=== PATIENT | male | born 1940 | race Caucasian/White ===

== ENCOUNTER 2019-02-08 07:53 | Inpatient (IN) ==
--- NOTE | 2019-01-16 15:36 | PAT Medication Instructions ---
Medication Instructions Date of Service January 16, 2019 Home Medications Naproxen (Aleve) 440mg PO QDL ASK your surgeon for instructions Naproxen (Aleve) 440mg PO QDL Other Notes If you have any questions please call us at [phone] or [phone] or [phone] or [phone]
--- NOTE | 2019-01-17 10:30 | Anesthesiology Consultation ---
Date of Service January 17, 2019 Assessment & Plan (1) Encounter for pre-operative examination: Chart Review Chart Review: Acceptable Risk for Surgery and Patient seen in Pre Admission Testing Consults Requested medical (Dr. Johsnon, 01/28 @ 10am) Patient was seen by PCPs office on 02/04/19 for preoperative evaluation. Per note from this visit, "Patient is medically clear for surgery with acceptable risk." Teaching & Discussion Pre-Anesthesia Teaching/Discussion Notes: Instructed NPO after midnight before surgery, except medications with 15 cc of water. Medication instructions provided according to the PAT guidelines. History Surgery Operation Date: 02/08/19 11:05 Proposed Procedures p Right Total Knee Arthroplasty - Edvin Wheat MD Height/Weight Height: 5 ft 8 in Weight: 84 kg Allergies Allergy/AdvReac Type Severity Reaction Status Date / Time No Known Allergies Allergy Verified 02/08/19 08:30 Medications Home Medications Medication Instructions Recorded Confirmed Last Taken naproxen sodium [Aleve] 440 mg PO QDL 01/15/19 02/08/19 02/07/19 08:00 omeprazole magnesium [Prilosec OTC] 20 mg PO QAM 01/17/19 02/08/19 02/08/19 06:00 Norvasc 5 mg PO DAILY 02/08/19 02/08/19 02/08/19 06:00 lisinopril 10 mg PO DAILY 02/08/19 02/08/19 02/08/19 06:00 Active Medications Generic Name Dose Route Start Last Admin Trade Name Freq PRN Reason Stop Dose Admin Acetaminophen 1,000 mg 02/08/19 06:00 02/08/19 09:08 Tylenol PO 02/08/19 18:00 1,000 mg PREOP ALICIA Administration Celecoxib 200 mg 02/08/19 06:00 02/08/19 09:08 Celebrex PO 02/08/19 18:00 200 mg PREOP ALICIA Administration Dexamethasone 8 mg 02/08/19 06:00 02/08/19 09:08 Decadron PO 02/08/19 18:00 8 mg PREOP ALICIA Administration Famotidine 20 mg 02/08/19 06:00 02/08/19 09:08 Pepcid PO 02/08/19 18:00 20 mg PREOP ALICIA Administration Gabapentin 300 mg 02/08/19 06:00 02/08/19 09:08 Neurontin PO 02/08/19 18:00 300 mg PREOP ALICIA Administration Lactated Ringer's 1,000 mls @ 15 mls/hr 02/08/19 06:00 02/08/19 09:06 Lr IV 02/08/19 18:00 15 mls/hr .Q24H ALICIA Administration Metoclopramide HCl 10 mg 02/08/19 06:00 02/08/19 09:08 Reglan PO 02/08/19 18:00 10 mg PREOP ALICIA Administration Past Medical History Medical History Hypertension (Acute) Bilateral eye ectropion Osteoarthritis Past Surgical History Surgical History History of ectropion repair x5 - right eye Past Anesthesia History No Hx of Anesthesia Complications and No Family Hx of Anesthesia Complications History of PONV No Motion Sickness Screening History of Motion Sickness: No Social History Smoking Status: Former smoker tobacco type: pipe Do You Dip or Chew Tobacco: No Smoking End Date: 35 yr ago Hx Alcohol Use: Yes Alcohol type: beer alcohol intake frequency: 0-2 drinks per day Hx Substance Use: No Exercise / Class Metabolic Activity II 4-5 Yardwork/Stairs/Walk up hill (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 Able to climb FOS. Denies CP or SOB. ) Review of Systems Patient denies chest pain, shortness of breath, dyspnea on exertion, cough, wheezing, palpitations. +Joint Pain (Knee) +Acid Reflux (controlled with medications) Physical Exam Vital Signs Last Vital Signs Temp 36.8 C 02/08/19 08:49 Pulse 77 02/08/19 08:49 Resp 18 02/08/19 08:49 BP 177/75 H 02/08/19 08:49 Pulse Ox 99 02/08/19 08:49 BP: 178/74 P: 69 R: 16 T: 98.2 SPO2: 98% on RA Eye - Bilateral Ectropian R>L ENMT Mouth: + poor dentition Thyromental Distance: < 3.5 Finger Breadths (3) Mallampati Class: II Upper partial Neck normal visual inspection and trachea midline; neck extension not limited Respiratory normal respiratory effort Auscultation: lungs clear to auscultation bilaterally Cardiovascular Rate/Rhythm: regular rate and regular rhythm Heart Sounds: no murmur Vessels: no carotid bruit Neurologic moves all extremities Psychiatric Orientation: alert and oriented x 3 Testing Electrocardiogram Date: 01/17/19 Findings: + NSR @ (69) Sinus rhythm with 1st degree AV block. Left anterior fascicular block. Chest X-Ray Date: 01/17/19 Findings: + NAD FINDINGS: Small cluster of tiny nodular densities within the right upper lobe favor calcified granulomas. The lungs are otherwise clear. No pleural effusions. No pneumothorax. The heart is normal in size. IMPRESSION: No acute process. Laboratory Results 01/17/19 11:08 01/17/19 11:08 Blood Type B Positive 01/17/19 11:08 Antibody Screen NEGATIVE 01/17/19 11:08 PT 10.7 Seconds (9.0-12.0) 01/17/19 11:08 INR 1.0 (0.9-1.1) 01/17/19 11:08 APTT 26.4 Seconds (21.0-31.0) 01/17/19 11:08 Hemoglobin A1c 5.2 % (4.5-5.6) 01/17/19 11:08 Urine Color Dark Yellow 01/17/19 11:08 Urine Appearance Clear (Clear) 01/17/19 11:08 Urine pH 8.0 (4.5-7.5) H 01/17/19 11:08 Ur Specific [place] 1.023 (1.000-1.030) 01/17/19 11:08 Urine Protein Negative (Negative) 01/17/19 11:08 Urine Glucose (UA) Negative (Negative) 01/17/19 11:08 Urine Ketones Trace (Negative) H 01/17/19 11:08 Urine Nitrite Negative (Negative) 01/17/19 11:08 Ur Leukocyte Esterase Negative (Negative) 01/17/19 11:08 01/17/19 11:08 Urine Culture - Final Urine,Clean Catch Three types of organisms present, all low counts probable skin norman. No further identifications or sensitivities to follow.
[2019-01-17 11:21] LABS: Basophils # (auto) 0.01 K/uL (0-0.2); Basophils % (auto) 0.2 %; Eosinophils # (auto) 0.06 K/uL (0-0.5); Eosinophils % (auto) 1.3 %; Hematocrit (blood only) 46.3 % (42-52); Hemoglobin 15.9 g/dL (14.0-18.0); Lymphocytes # (auto) 0.85 K/uL (1.2-3.4); Lymphocytes % (auto) 18.2 %; Mean Corpuscular Hgb Conc 34.3 g/dL (32-36); Mean Corpuscular Volume 99.8 fL (80-100); Monocytes # (auto) 0.67 K/uL (0.11-0.59); Monocytes % (auto) 14.3 %; Neutrophils # (auto) 3.08 K/uL (1.4-6.5); Platelet Count 102 K/uL (130-400); RDW Coefficient of Variation 13.1 % (11.5-14.5); RDW Standard Deviation 47.3 fL (36.4-46.3); Red Blood Count 4.64 M/uL (4.7-6.1); White Blood Count 4.67 K/uL (4.8-10.8)
[2019-01-17 11:25] LABS: Appearance Urine Clear (Clear); Bilirubin Urine Negative (Negative); Blood Urine Negative (Negative); Color Urine Dark Yellow; Glucose Urine UA Negative (Negative); Ketones Urine Trace (Negative); Leukocyte Esterase Urine Negative (Negative); Nitrite Urine Negative (Negative); Protein Urine Negative (Negative); Specific Gravity Urine 1.023 (1.000-1.030); Urobilinogen Urine Negative (Negative)
[2019-01-17 11:29] LABS: Estimated Average Glucose 103 mg/dl; Hemoglobin A1C 5.2 % (4.5-5.6)
[2019-01-17 11:36] LABS: Partial Thromboplastin Time 26.4 Seconds (21.0-31.0); Prothrombin Time 10.7 Seconds (9.0-12.0)
--- NOTE | 2019-01-17 12:03 | XRay Report ---
XR chest Pre-admission PA/Lat HISTORY: Preop. COMPARISON: None. FINDINGS: Small cluster of tiny nodular densities within the right upper lobe favor calcified granulo mas. The lungs are otherwise clear. No pleural effusions. No pneumothorax. The heart is normal in siz e. IMPRESSION: No acute process. Electronically signed by: Jevon Joseph M.D. 01/17/2019 12:02 PM
[2019-01-17 12:49] LABS: Albumin Level 3.7 gm/dl (3.4-5.0); BUN Creatinine Ratio 14.3 (10-20); Calcium 9.6 mg/dl (8.5-10.1); Creatinine Clr Calc Pharmacy 77.4 ml/min; Est GFR (African American) 97.7; Est GFR (Non-African American) 84.3
--- NOTE | 2019-01-30 14:53 | History & Physical Report ---
Date of Service January 30, 2019 Assessment & Plan (1) Primary osteoarthritis of right knee: Patient has failed conservative measures as above. Treatment options were discussed and he would like to proceed with surgical intervention. Risks, benefits and alternatives to surgery including but not limited to infection, DVT, pain, stiffness, need for revision surgery, damage to blood vessels, damage to nerves, PE, , were discussed with the patient and they wish to proceed. Plan will be for right total knee arthroplasty. We will plan on Aspirin 81mg BID x 30 days for DVT prophylaxis. Plans will be for him to go home upon discharge from the hospital with either home therapy vs outpatient PT. He will follow up in the office post operatively. History of Present Illness Chief Complaint: Right knee pain Primary Care Provider: Livia Zamora 78 year old male who presents with chronic right knee pain. He has adavanced osteoarthritis of his right knee. He has failed conservative measures including steroid injections and aspiration as well as anti-inflammatory medication. Last injection only gave him a few weeks of relief. He would like to proceed with right knee replacement. Patient denies headaches, sweats, fevers, chills, double vision, blurred vision, cough, sore throat, dysphagia, chest pain, sob, wheezing, n/v/d/c, numbness, tingling, fatigue, urinary symptoms, mood disorders. ROS positive for right pain and stiffness. Allergies Allergy/AdvReac Type Severity Reaction Status Date / Time No Known Allergies Allergy Verified 01/15/19 13:26 Home Medications Home Medications Medication Instructions Recorded Confirmed Type naproxen sodium [Aleve] 440 mg PO QDL 01/15/19 01/15/19 History omeprazole magnesium [Prilosec OTC] 20 mg PO QAM 01/17/19 01/17/19 History Past Med/Surg History Medical History Bilateral eye ectropion Osteoarthritis Surgical History History of ectropion repair x5 - right eye Social History Preferred Language: Kinyarwanda Communication Ability: Effective Beliefs That Will Affect Care: None Current Living Situation: Alone Feels Safe at Home: Yes Safety Concerns: Feels Safe At This Time Smoking Status: Former smoker Tobacco Type: pipe Do You Dip or Chew Tobacco: No Smoking End Date: 35 yr ago Second Hand Exposure: No Hx Alcohol Use: Yes Alcohol type: beer Hx Substance Use: No Review of Systems All systems reviewed & are unremarkable except as noted in HPI & below Physical Exam Constitutional: well developed and well nourished; no acute distress Eyes: PERRL, conjunctivae normal, anicteric sclerae ENMT: external ear and nose normal, oropharynx normal Neck: trachea midline, no thyromegaly Respiratory: normal respiratory effort, lungs clear to auscultation Cardiovascular: Rate/Rhythm: regular rate and regular rhythm Heart Sounds: + murmur (1/6 systolic murmur 2nd intercostal space, right sternal border) Extremities: no edema Musculoskeletal: Right knee-ROM 0-120, crepitus with ROM. Mild to moderate effusion, varus alignment. Stable to valgus and varus stress, tenderness medially Skin: no rashes, warm and dry Neurologic: patellar DTR's 2+ bilat, sensation intact Psychiatric: A+Ox3, euthymic affect Results & Data Laboratory Results Lab Results 01/17/19 01/17/19 01/17/19 Range/Units 11:08 11:08 11:08 WBC 4.67 L (4.8-10.8) K/uL RBC 4.64 L (4.7-6.1) M/uL Hgb 15.9 (14.0-18.0) g/dL Hct 46.3 (42-52) % MCV 99.8 (80-100) fL MCH 34.3 H (25-34) pg MCHC 34.3 (32-36) g/dL RDW Std Deviation 47.3 H (36.4-46.3) fL RDW Coeff of Jose 13.1 (11.5-14.5) % Plt Count 102 L (130-400) K/uL MPV 11.0 H (7.4-10.4) fL Immature Gran % (Auto) 0.0 % Neut % (Auto) 66.0 % Lymph % (Auto) 18.2 % Lipscomb % (Auto) 14.3 % Eos % (Auto) 1.3 % Baso % (Auto) 0.2 % Immature Gran # (Auto) 0.00 (0.00-0.02) K/uL Neut # (Auto) 3.08 (1.4-6.5) K/uL Lymph # (Auto) 0.85 L (1.2-3.4) K/uL Lipscomb # (Auto) 0.67 H (0.11-0.59) K/uL Eos # (Auto) 0.06 (0-0.5) K/uL Baso # (Auto) 0.01 (0-0.2) K/uL PT 10.7 (9.0-12.0) Seconds INR 1.0 (0.9-1.1) APTT 26.4 (21.0-31.0) Seconds PTT Ratio 1.0 Sodium (136-145) mmol/L Potassium (3.5-5.1) mmol/L Chloride (98-107) mmol/L Carbon Dioxide (21-32) mmol/L Anion Gap (3-11) BUN (7-18) mg/dl Creatinine (0.6-1.4) mg/dl Est Cr Clr Drug Dosing ml/min Est GFR ( Amer) Est GFR (Non-Af Amer) BUN/Creatinine Ratio (10-20) Glucose (70-99) mg/dl Estimat Average Glucose mg/dl Hemoglobin A1c (4.5-5.6) % Calcium (8.5-10.1) mg/dl Albumin (3.4-5.0) gm/dl Urine Color Dark Yellow Urine Appearance Clear (Clear) Urine pH 8.0 H (4.5-7.5) Ur Specific [place] 1.023 (1.000-1.030) Urine Protein Negative (Negative) Urine Glucose (UA) Negative (Negative) Urine Ketones Trace H (Negative) Urine Blood Negative (Negative) Urine Nitrite Negative (Negative) Urine Bilirubin Negative (Negative) Urine Urobilinogen Negative (Negative) Ur Leukocyte Esterase Negative (Negative) Blood Type Antibody Screen 01/17/19 01/17/19 01/17/19 Range/Units 11:08 11:08 11:08 WBC (4.8-10.8) K/uL RBC (4.7-6.1) M/uL Hgb (14.0-18.0) g/dL Hct (42-52) % MCV (80-100) fL MCH (25-34) pg MCHC (32-36) g/dL RDW Std Deviation (36.4-46.3) fL RDW Coeff of Jose (11.5-14.5) % Plt Count (130-400) K/uL MPV (7.4-10.4) fL Immature Gran % (Auto) % Neut % (Auto) % Lymph % (Auto) % Lipscomb % (Auto) % Eos % (Auto) % Baso % (Auto) % Immature Gran # (Auto) (0.00-0.02) K/uL Neut # (Auto) (1.4-6.5) K/uL Lymph # (Auto) (1.2-3.4) K/uL Lipscomb # (Auto) (0.11-0.59) K/uL Eos # (Auto) (0-0.5) K/uL Baso # (Auto) (0-0.2) K/uL PT (9.0-12.0) Seconds INR (0.9-1.1) APTT (21.0-31.0) Seconds PTT Ratio Sodium 140 (136-145) mmol/L Potassium 4.0 (3.5-5.1) mmol/L Chloride 106 (98-107) mmol/L Carbon Dioxide 26 (21-32) mmol/L Anion Gap 8.0 (3-11) BUN 12 (7-18) mg/dl Creatinine 0.83 (0.6-1.4) mg/dl Est Cr Clr Drug Dosing 77.4 ml/min Est GFR ( Amer) 97.7 Est GFR (Non-Af Amer) 84.3 BUN/Creatinine Ratio 14.3 (10-20) Glucose 100 H (70-99) mg/dl Estimat Average Glucose 103 mg/dl Hemoglobin A1c 5.2 (4.5-5.6) % Calcium 9.6 (8.5-10.1) mg/dl Albumin 3.7 (3.4-5.0) gm/dl Urine Color Urine Appearance (Clear) Urine pH (4.5-7.5) Ur Specific [place] (1.000-1.030) Urine Protein (Negative) Urine Glucose (UA) (Negative) Urine Ketones (Negative) Urine Blood (Negative) Urine Nitrite (Negative) Urine Bilirubin (Negative) Urine Urobilinogen (Negative) Ur Leukocyte Esterase (Negative) Blood Type B Positive Antibody Screen NEGATIVE Diagnostic Findings Right knee radiographs: [id number] medial compartment with varus alignment. Periarticular osteophyte formation and subchondral sclerosis
[~2019-02-08 07:53] MED LIST: ACETAMINOPHEN 500 MG TAB PO SCH; BUPIVACAINE 0.5 % 5 MG/1 ML PF 10ML VIAL ONE; CEFAZOLIN 2000MG 2,000 MG/15 ML SYR IV SCH; CeleBREX 200 MG CAP PO SCH; FAMOTIDINE 20 MG TAB PO SCH; GABAPENTIN 300 MG PO SCH; LR 500ML BOLUS, THEN 15ML/HR IV SCH; METOCLOPRAMIDE HCL 10 MG TABLET PO SCH; ROPIVACAINE 0.5% 5 MG/ML 30 ML VIAL ONE; ROPIVACAINE 0.5% HCL/PF 150 MG, BUPIVACAINE 0.5% MPF 30 ML, EPINEPHrine 30MG/30ML (OR U... INFIL SCH; dexAMETHasone 4 MG TAB PO SCH
[2019-02-08] MEDS ORDERED: fentaNYL citrate 100 MCG/2 ML VIAL ONE (08:58)
[2019-02-08] MEDS ORDERED: MIDAZOLAM HCL 1 MG/ML 2ML VIAL ONE ×2 (08:58)
--- NOTE | 2019-02-08 09:19 | History & Physical Bridge Note ---
Date of Service February 08, 2019 History & Physical Bridge Note I have examined the patient, reviewed the History & Physical and in the interval since the performance of the History & Physical I have noted the following changes of clinical significance: no changes noted
[2019-02-08] MEDS ORDERED: ORTHO JOINT ANESTHETIC ONE (09:49)
[2019-02-08] MEDS ORDERED: POVIDONE-IODINE OP SOLN 30 ML BTL ONE (09:49)
[2019-02-08] MEDS ORDERED: BACITRACIN INJ 50,000 UNIT VIAL ONE (09:49)
[2019-02-08] MEDS ORDERED: LIDOCAINE HCL 2% 2 ML VIAL/AMP(20MG/ML) INFIL ONE (10:00)
[2019-02-08] MEDS ORDERED: PROPOFOL IV EMULSION 10 MG/ML 20 ML VIAL IV ONE (10:00)
[2019-02-08] MEDS ORDERED: ONDANSETRON INJ 2 MG/ML 2 ML VIAL ONE (10:00)
[2019-02-08] MEDS ORDERED: TRANEXAMIC ACID 1,000 MG in 0.9 % SODIUM CHLORIDE 100 ML IV STA (10:52)
--- NOTE | 2019-02-08 12:15 | Operative Report ---
Post Operative Report Pre & Post Diagnosis Operation Date: 02/08/19 11:05 Pre-Op Diagnosis: Right Knee Primary Osteoarthritis Post-Op Diagnosis: Right Knee Primary Osteoarthritis Procedure Operation Date: 02/08/19 11:05 Actual Procedures p Right Total Knee Arthroplasty(Right) - Edvin Wheat MD Surgeon Edvin Wheat MD Manager [employer] Vernon Lorenz PA-C Estimated Blood Loss 10 Findings Consistent with Post-Op Diagnosis Specimens Bone and tissue Drains 2 Hemovac Anesthesia Type Spinal MAC Complications none Disposition Accompanied Patient To Recovery: No Disposition: Recovery Room Indications The patient is a 78-year-old male with 3 change of the right knee. He also has osteonecrosis of the medial femoral condyle. He is failed conservative measures and wishes to proceed with a right total knee arthroplasty Description of Procedure Risks benefits and alternatives of surgery including but not limited to infection, DVT, pain, stiffness, need for surgery, damage to blood vessels, damage to nerves or risks of anesthesia were discussed with the patient and they wished to proceed. The patient was identified and the laterality was confirmed and marked. They received a preoperative antibiotic as well as a spinal anesthetic and an abductor canal block. A well-padded tourniquet was applied and then the limb was prepped and draped in standard manner with ChloraPrep. The limb was exsanguinated and the tourniquet was inflated. I made a standard anterior incision. I sharply incised the skin then utilized Bovie electrocautery to achieve hemostasis. I made a medial parapatellar arthrotomy and mobilized the patella laterally. I then excised the anterior horns of the medial and lateral meniscus as well as the infrapatellar fat pad. I elevated a portion of the MCL off of the tibia. I then pinned into place a patient-matched distal femoral cutting guide and made my distal femoral resection. I then pinned into place the 5 in 1 femoral cutting guide. I made my anterior, posterior and chamfer cuts. I then excised the cruciates and the remaining portions of the menisci. I then pinned into place a patient- matched tibial cutting guide and made my tibial resection. I then pinned into place the tibial plate a utilizing alignment kay to confirm rotation. I then cut for the post. Utilizing a lamina lift operator and I then removed posterior osteophytes off the femur. I then placed a trial femur into position and cut for the trochlear component. I then sequentially trialed to size the polyethylene until there was good soft tissue balancing and range of motion. I then prepared the patella with a freehand cut utilizing sagittal saw. I sized and drilled for the patella. There was good tracking to the patella no lateral release was needed. All the trial components were removed. The deep tissues were anesthetized with an ortho mix solution. Then with Simplex HV with gentamicin cement, I cemented my definitive components. Definitive components, Trujillo and Nephew Journey 2: Femur 7 Tibia 5 Poly 9 Patella 35 oval A betadine soak was performed. A deep drain was placed. The arthrotomy was closed with interrupted #1 Vicryl suture subcutaneous tissue was closed with interrupted 2-0 Vicryl suture. The skin was closed with with campbell. An Acticoat and Shila dressing were placed. Sterile dressings were applied. All needle and sponge counts were correct at the end of the procedure patient was transferred to the PACU in stable condition without apparent complication. The PA-C was necessary for assistance with procedure for assistance in positioning, prepping, draping, retraction and closure. I attest to the content of the Intraoperative Record and any orders documented therein. Any exceptions are noted below.
--- NOTE | 2019-02-08 13:23 | Anesthesiology Progress Note ---
Date of Service February 08, 2019 Anesthesia Post Procedure Vital Signs Vital Signs: Temp Pulse Pulse Pulse Resp BP BP 02/08/19 13:11 67 17 02/08/19 13:10 65 16 116/54 L 02/08/19 13:06 70 22 106/54 L 02/08/19 13:05 64 27 H 02/08/19 13:01 64 18 02/08/19 13:00 70 15 107/54 L 02/08/19 12:56 68 16 02/08/19 12:55 71 19 117/57 L 02/08/19 12:50 37.3 C 70 71 18 97/47 L 97/47 L 02/08/19 08:49 36.8 C 77 18 177/75 H Pulse Ox 02/08/19 13:11 94 02/08/19 13:10 93 02/08/19 13:06 95 02/08/19 13:05 96 02/08/19 13:01 98 02/08/19 13:00 99 02/08/19 12:56 99 02/08/19 12:55 97 02/08/19 12:50 96 02/08/19 08:49 99 Pain Intensity Right Knee: Pain Intensity: 0 Transfer of Care Handoff Completed per policy Notes Mental Status: alert / awake / arousable Patient Amnestic to Procedure: Yes Nausea / Vomiting: adequately controlled Pain: adequately controlled Airway Patency, RR, SpO2: stable & adequate BP & HR: stable & adequate Hydration State: stable & adequate Neuraxial Anesthesia: was administered and sensory block is resolving Anesthetic Complications: no major complications apparent and Pt Satisfied with anesthetic care
--- NOTE | 2019-02-08 13:29 | XRay Report ---
XR knee RT 2V routine HISTORY: 78 years-old Male Surgical Post Op right knee total joint arthroplasty COMPARISON: None available TECHNIQUE: 2 views of the right knee FINDINGS: Right knee total joint arthroplasty an patellar resurfacing demonstrates satisfactory alignment. Ante rior midline skin campbell with expected postsurgical soft tissue swelling and deep tissue air. Surgic al drainage catheter noted. Peripheral arterial calcifications are noted. No retained foreign body. IMPRESSION: Right knee total joint arthroplasty and patella resurfacing with satisfactory alignment. The above report was generated using voice recognition software. It may contain grammatical, syntax o r spelling errors. Electronically signed by: Henrique Rodgers M.D. 02/08/2019 1:27 PM
[2019-02-08] MEDS ORDERED: ePHEDrine sulfate 50 MG/ML AMP IV PRN (13:35)
[2019-02-08] MEDS ORDERED: ATROPINE SULFATE 0.1 MG/ML 10ML SYR IV PRN (13:35)
[2019-02-08] MEDS ORDERED: ONDANSETRON INJ 2 MG/ML 2 ML VIAL IV PRN (13:51)
[2019-02-08] MEDS ORDERED: HYDROmorphone INJ 0.5 MG/0.5 ML SYR IV PRN (13:51)
[2019-02-08] MEDS ORDERED: BISACODYL 10 MG SUPP PR PRN (13:51)
[2019-02-08] MEDS ORDERED: NALOXONE HCL 0.4 MG/1 ML VIAL/CARP IV PRN (13:51)
[2019-02-08] MEDS ORDERED: MAGNESIUM HYDROXIDE SUSP 30 ML UDC PO PRN (13:51)
[2019-02-08] MEDS: ACETAMINOPHEN 500 MG TAB PO SCH ×2 (15:56→22:13)
[2019-02-08] MEDS: SODIUM CHLORIDE 0.9% 1000ML 1,000 ML IV SCH (16:34)
[2019-02-08] MEDS ORDERED: TRANEXAMIC ACID 1,000 MG in 0.9 % SODIUM CHLORIDE 100 ML IV SCH (18:45)
[2019-02-08] MEDS: CEFAZOLIN 2000MG 2,000 MG/15 ML SYR IV SCH (19:16)
[2019-02-08] MEDS: SENNA 8.6 MG TAB PO SCH (21:34)
[2019-02-08] MEDS: DOCUSATE SODIUM 100 MG CAP PO SCH (21:34)
[2019-02-08] MEDS: ASPIRIN 81 MG ECTAB PO SCH (21:34)
[2019-02-09] MEDS: SODIUM CHLORIDE 0.9% 1000ML 1,000 ML IV SCH (00:04)
[2019-02-09] MEDS: CEFAZOLIN 2000MG 2,000 MG/15 ML SYR IV SCH (03:11)
[2019-02-09 06:09] LABS: Hematocrit (blood only) 35.5 % (42-52); Hemoglobin 12.7 g/dL (14.0-18.0); Mean Corpuscular Hgb Conc 35.8 g/dL (32-36); Mean Corpuscular Volume 96.7 fL (80-100); RDW Coefficient of Variation 12.8 % (11.5-14.5); RDW Standard Deviation 44.9 fL (36.4-46.3); Red Blood Count 3.67 M/uL (4.7-6.1); White Blood Count 9.98 K/uL (4.8-10.8)
[2019-02-09] MEDS: ACETAMINOPHEN 500 MG TAB PO SCH ×3 (06:15→21:52)
[2019-02-09 06:34] LABS: Platelet Count 86 K/uL (130-400)
[2019-02-09 06:35] LABS: Platelet Estimate Decreased (Normal)
[2019-02-09 06:48] LABS: BUN Creatinine Ratio 24.3 (10-20); Calcium 8.4 mg/dl (8.5-10.1); Creatinine Clr Calc Pharmacy 74.6 ml/min; Est GFR (African American) 96.3; Est GFR (Non-African American) 83.1
--- NOTE | 2019-02-09 07:33 | Orthopedic Progress Note ---
Date of Service February 09, 2019 Assessment & Plan (1) Primary osteoarthritis of right knee: POD #1, Right TKA PT/ OT DVT proph- ASA D/C planning- HH vs OPPT Subjective POD#1, Doing well, Denies SOB, CP, N/V, pain controlled well. Physical Exam Physical Exam: Right knee dressings c/d/i, no drainage, toes and ankle mobile, no calf tenderness, A&Ox3. Results & Data Vital Signs (Past 12 Hours) Vital Signs Temp Pulse Resp BP Pulse Ox 02/09/19 07:24 36.6 C 65 18 157/72 H 98 02/09/19 02:30 36.5 C 68 16 165/77 H 95 02/08/19 22:52 36.5 C 67 16 158/76 H 98 02/08/19 21:30 36.7 C 71 18 150/68 H 97
[2019-02-09] MEDS: LISINOPRIL 10 MG TAB PO SCH (08:14)
[2019-02-09] MEDS: PANTOprazole 40 MG TAB PO SCH (08:14)
[2019-02-09] MEDS: AMLODIPINE BESYLATE 5 MG TAB PO SCH (08:14)
[2019-02-09] MEDS: DOCUSATE SODIUM 100 MG CAP PO SCH ×2 (08:14→20:27)
[2019-02-09] MEDS: ASPIRIN 81 MG ECTAB PO SCH ×2 (08:14→20:27)
[2019-02-09] MEDS: MULTIVITAMIN TAB PO SCH (08:14)
--- NOTE | 2019-02-09 08:56 | Anesthesiology Progress Note ---
Date of Service February 09, 2019 Anesthesia Post Procedure Vital Signs Vital Signs: Temp Pulse Pulse Pulse Resp BP BP 02/09/19 08:30 36.6 C 74 18 119/71 02/09/19 07:24 36.6 C 65 18 157/72 H 02/09/19 02:30 36.5 C 68 16 165/77 H 02/08/19 22:52 36.5 C 67 16 158/76 H 02/08/19 21:30 36.7 C 71 18 150/68 H 02/08/19 16:37 36.4 C L 74 18 136/66 02/08/19 15:44 36.4 C L 77 18 141/70 H 02/08/19 14:48 36.6 C 72 20 150/75 H 02/08/19 14:08 36.5 C 67 20 132/67 02/08/19 13:45 36.5 C 65 16 129/63 02/08/19 13:30 36.5 C 68 27 H 02/08/19 13:26 64 18 02/08/19 13:25 63 17 111/55 L 02/08/19 13:20 66 18 115/57 L 02/08/19 13:16 66 19 02/08/19 13:15 64 18 115/56 L 02/08/19 13:11 67 17 02/08/19 13:10 65 16 116/54 L 02/08/19 13:06 70 22 106/54 L 02/08/19 13:05 64 27 H 02/08/19 13:01 64 18 02/08/19 13:00 70 15 107/54 L 02/08/19 12:56 68 16 02/08/19 12:55 71 19 117/57 L 02/08/19 12:50 37.3 C 70 71 18 97/47 L 97/47 L Pulse Ox 02/09/19 08:30 91 02/09/19 07:24 98 02/09/19 02:30 95 02/08/19 22:52 98 02/08/19 21:30 97 02/08/19 16:37 94 02/08/19 15:44 94 02/08/19 14:48 96 02/08/19 14:08 97 02/08/19 13:45 95 02/08/19 13:30 98 02/08/19 13:26 93 02/08/19 13:25 95 02/08/19 13:20 95 02/08/19 13:16 94 02/08/19 13:15 94 02/08/19 13:11 94 02/08/19 13:10 93 02/08/19 13:06 95 02/08/19 13:05 96 02/08/19 13:01 98 02/08/19 13:00 99 02/08/19 12:56 99 02/08/19 12:55 97 02/08/19 12:50 96 Pain Intensity Right Knee: Pain Intensity: 0 Notes Mental Status: alert / awake / arousable and participated in evaluation Patient Amnestic to Procedure: Yes Nausea / Vomiting: adequately controlled Pain: adequately controlled Airway Patency, RR, SpO2: stable & adequate BP & HR: stable & adequate Hydration State: stable & adequate Neuraxial Anesthesia: was administered and sensory block resolved Anesthetic Complications: no major complications apparent and Pt Satisfied with anesthetic care
[2019-02-09] MEDS: OXYCODONE HCL IR 5 MG TAB (IMMEDIATE RELEASE) PO PRN ×2 (19:42→20:25)
[2019-02-09] MEDS: SENNA 8.6 MG TAB PO SCH (20:27)
[2019-02-10] MEDS: ACETAMINOPHEN 500 MG TAB PO SCH (05:49)
[2019-02-10] MEDS: PANTOprazole 40 MG TAB PO SCH (08:31)
[2019-02-10] MEDS: AMLODIPINE BESYLATE 5 MG TAB PO SCH (08:31)
[2019-02-10] MEDS: MULTIVITAMIN TAB PO SCH (08:31)
[2019-02-10] MEDS: DOCUSATE SODIUM 100 MG CAP PO SCH (08:31)
[2019-02-10] MEDS: LISINOPRIL 10 MG TAB PO SCH (08:32)
[2019-02-10] MEDS: ASPIRIN 81 MG ECTAB PO SCH (08:32)
--- NOTE | 2019-02-10 08:55 | Orthopedic Progress Note ---
Date of Service February 10, 2019 Assessment & Plan (1) Primary osteoarthritis of right knee: POD #2, Right TKA PT/ OT- WBAT DVT proph- ASA D/C planning- Home w OPPT today Subjective POD#2, Doing well, Denies SOB, CP, N/V, pain controlled well. Physical Exam Physical Exam: Right knee wound vac in tact, no drainage, no erythema, no calf tenderness, toes and ankle mobile. A&Ox3. Results & Data Vital Signs (Past 12 Hours) Vital Signs Temp Pulse Pulse Resp BP Pulse Ox 02/10/19 08:20 36.6 C 67 16 166/73 H 98 02/10/19 00:05 36.5 C 69 16 155/66 H 99
[2019-02-10] MEDS: OXYCODONE HCL IR 5 MG TAB (IMMEDIATE RELEASE) PO PRN (10:28)
--- NOTE | 2019-02-11 15:06 | Discharge Summary ---
DISCHARGE DIAGNOSIS: Degenerative joint disease, right knee. SECONDARY DIAGNOSES: Bilateral eye ectropion, osteoarthritis. CONSULTS: None. COMPLICATIONS: None. PROCEDURES: Right total knee arthroplasty performed by Dr. Wheat on 02/08/2019. BRIEF HISTORY: As dictated in the history and physical. HOSPITAL SUMMARY: The patient was admitted on the above-noted date and had the above-noted surgery performed which he tolerated well. On his first postoperative day, he was doing well and had no complaints. Pain was controlled. Dressings clean, dry and intact. He had no drainage. Toes and ankle were mobile. No calf tenderness. Vital signs were stable. He was afebrile and he was started on physical therapy protocol and continued on DVT prophylaxis and pain management. Hemoglobin was 12.7. By his second postoperative day, he continued to have no complaints. Pain was controlled. Right knee wound VAC was intact. No drainage, no erythema, no calf tenderness. Toes and ankle were mobile and he was alert and oriented x3. Vital signs were stable. He was afebrile. He was progressing with his physical therapy and it was felt that he could be discharged to home with plans for outpatient PT on 02/10/2019. For further review, please see chart. LABORATORY AND X-RAY DATA: As per chart. DISCHARGE INSTRUCTIONS: The patient was discharged home in satisfactory condition on 02/10/2019. Diet: Regular. Activity: Weightbearing as tolerated on the right lower extremity. Follow TK instruction sheets and special care instructions as noted. Follow up with Dr. Wheat in 2 weeks. The patient is to call for appointment if one has not been made for you. DISCHARGE MEDICATIONS: Acetaminophen 1000 mg p.o. q. 8 hours, aspirin 81 mg p.o. b.i.d., oxycodone 5-10 mg p.o. q. 6 hours p.r.n. Resume home meds as listed and stop taking naproxen.
== END 2019-02-10 12:36 | disposition home health service (06) | DRG 470 ==
LOC: ASU 07:53 → 3E 12:57